=== PATIENT | female | born 1950 | race Caucasian/White ===

== ENCOUNTER 2025-04-08 14:03 | Emergency (ER) | payer OTHER, SELFPAY ==
[2025-04-08 14:13] VITALS: BP 157/54
--- NOTE | 2025-04-08 15:10 | EDRN ---
Received patient on stretcher. Patient stated 'I wish I could just disappear. I have been depressed for 30 years and I am treatment resistant. I don't want to go to any inpatient or outpatient program. I need to have the psychiatrist come see me and
only a psychiatrist see. I don't want to talk to anyone else.' Patient denies any plans of suicide.
--- NOTE | 2025-04-08 16:18 | ED.GENMED ---
History of Present Illness
General
Chief Complaint: Crisis Evaluation
Source: patient
Exam Limitations: none
Time Seen by Provider: 04/08/25 14:26
Nursing documentation reviewed up to this point in time: agreed with
History of Present Illness
History of Present Illness:
Patient is a 74-year-old female who presents to the emergency department for evaluation of worsening depression. Patients states that she has been struggling with depression for many years although feels that it has gotten worse. She describes
feeling as if she is in an 'alternate universe'. She states that she doesn't know where to go from here although she occasionally wishes that she 'was not here'.
She denies any past or current suicidal plan. She states that she would never act on these feelings as she is 'too chicken'. She denies any past suicidal attempts or hx of self harm
Patient denies any HI. She denies any visual/auditory hallucinations. She denies any alcohol use or substance abuse.
Patient states that she has been seen by psychiatrists in the past and has been dx with 'treatment resistant depression'. She is not currently on any medications.
She states that she is only here to speak to a psychiatrist and be connected with a 'Top Doc'.
Review of Systems
Review of Systems
Allergies reviewed?: Yes
All Other Systems: ROS reviewed and negative except as documented in HPI and ROS
Phy Exam
General Physical Exam
General Presentation: well appearing
General age: appears stated age
General Skin: warm and dry
General Habitus: normal
ENT Exam
ENT Exam: neck supple and normocephalic
Eye Exam
Eye Exam: conjunctiva normal
Cardiovascular Exam
Cardiovascular Exam: regular rate/rhythm and no edema
Pulmonary Exam
Pulmonary Exam: lungs clear
Gastrointestinal Exam
Gastrointestinal Exam: non distended
Neurological Exam
Neurological Exam: alert, oriented x3, no motor deficits, speech normal and normal gait
Musculoskeletal Exam
Musculoskeletal Exam: full ROM
Psychiatric Exam
Psychiatric Exam: anxious, depressed and other (Not responding to any internal stimuli on exam. Clear goal directed speech.)
Course
Orders/Labs/Results
Orders:
Orders
04/08/25 14:21
Crisis Consult Urgent
Reason for Consult: depression
04/08/25 14:22
1:1 Observation - Suicide/ Violent Behavior As Directed
Vital Signs
Initial and Last Documented VS:
Initial Vital Signs
Temp Pulse Resp BP Pulse Ox
99.1 F 66 18 157/54 99
04/08/25 14:13 04/08/25 14:13 04/08/25 14:13 04/08/25 14:13 04/08/25 14:13
Last Documented Vital Signs
Temp Pulse Resp BP Pulse Ox
99.1 F 70 22 109/78 100
04/08/25 14:13 04/08/25 20:08 04/08/25 20:08 04/08/25 20:08 04/08/25 20:08
MDM/Problems Addressed
Differential Diagnosis Includes:
Not limited to: depression, anxiety, SI, acute psychosis, etc
MDM/Problems Addressed:
74 y.o F w/ history as documented presenting w/ worsening depression. No current SI/HI, or visual / auditory hallucinations. Patient denies any substance use. She states she currently takes no medications and is seeking a referral to a qualified
psychiatrist. Her main reason for presenting to the ED was to speak with a psychiatrist. Vitals and physical exam as above.
While patient does appear to be suffering from depression, she is not actively suicidal. No evidence of acute psychosis. Patient herself repeatedly declines inpatient psychiatric treatment. She has no hx of past suicidal attempts. I do not feel
patient meets criteria for involuntary inpatient psychiatric treatment. Patient was seen in conjunction with telepsychiatry who agrees that appropriate disposition would be outpatient psychiatric follow-up.
Patient declines IOP programs. She repeatedly states that she will only see a 'Top Doc'. She is only open to 'new treatment options that she has not tried' and a physician that will go 'above and beyond' given her hx of treatment resistant
depression. Patient given referral information to numerous local psychiatrists/ other mental health professionals/ programs. Lengthy discussion w/ patient regarding additional options vs inpatient / IOP options which she refuses. Strict return
precautions discussed.
Chronic conditions affecting care:
Depression
Acute Exacerbation and/or Progression of Chronic Illness:
N/A
*Pulse Oximetry
Patient hypoxic: no
*EKG
Interpreted by ED Provider?: NA
*Nurses' Aide Interpretation
Rate: Nurses' Aide- N/A
*Critical Care Note
Total Time (30-74mins, 75-104mins- exclusive of procedures): Not Applicable
Patient Management
Social determinants of health affecting care: Substance abuse
Discussion with other providers: [employer] Sales Representative (Telepsychiatry)
ED Attending Note
-
Portions of this chart may have been created with voice recognition software.� Occasional wrong word or��sound alike� substitutions may have occurred due to the inherent limitations of voice recognition software.
Discharge Plan
Departure
Patient Disposition: Home (Routine Discharge)
Date of Disposition: 04/08/25
Time of Disposition: 19:49
Patient with high blood pressure during this ER visit?: Yes
Condition: Good
Discharge Problem:
Depression
Instructions: Depression, Adult (DC), BLOOD PRESSURE
Activity Restrictions/Additional Instructions:
RETURN TO THE EMERGENCY DEPARTMENT WITH ANY THOUGHTS OF HARMING YOURSELF OR OTHERS, VISUAL/AUDITORY HALLUCINATIONS, WORSENING CURRENT SYMPTOMS, OR ANY OTHER CONCERNS
- As discussed�it is important that you follow-up with psychiatrist for further evaluation/management.
- Follow-up with your primary care provider for further evaluation/management as needed
Monitor your symptoms closely and return to the emergency department any acute worsening/new symptoms or any other concerns
Interventions
Interventions:
*Risk Screen - Suicide Last Done: 04/08/25 14:22
*General Assessment Last Done: 04/08/25 14:13
*Neglect/Abuse Screening Last Done: 04/08/25 15:00
*ED- Fall Risk Assessment Last Done: 04/08/25 15:00
*ED COVID-19 Vaccine History Last Done: 04/08/25 15:00
*Nursing Disposition Last Done: 04/08/25 20:21
ED-Psychological Assessment Last Done: 04/08/25 15:00
Discharge Date and Time
Discharge Date/Time: 04/08/25 20:22
Print Language: [id number]
[2025-04-08 20:08] VITALS: BP 109/78
== END 2025-04-08 20:22 | disposition home or self-care (01) ==
LOC: EMR 14:03
PROVIDERS: EMERGENCY PHYSICIAN Emergency Medicine
DX: F33.2 Major depressive disorder, recurrent severe without psychotic features (principal); Z63.8 Other specified problems related to primary support group
CPT/HCPCS: 99283